=== PATIENT | female | born 1940 | race Caucasian/White ===

== ENCOUNTER 2021-07-27 14:53 | Observation (INO) ==
[2021-07-27] MEDS ORDERED: 0.9 % Sodium Chloride 1,000 ML IVC ONE (20:23)
[2021-07-27] MEDS ORDERED: Ketorolac 30 MG/ML VIAL IVP ONE (20:23)
[2021-07-27 20:32] LABS: Basophils % 0.4 %; Eosinophils % 0.1 %; Hematocrit 43.8 % (35.3-44.9); Hemoglobin 14.3 g/dL (11.5-15.4); Immature Granulocytes % 0.3 % (0-4); Lymphocytes # 0.7 K/mcL (0.6-4.6); Lymphocytes % 7.8 %; Mean Corpuscular HGB Conc 32.6 g/dL (31.6-35.5); Mean Corpuscular Hemoglobin 26.6 pg (28.0-33.3); Mean Corpuscular Volume 81.6 fL (83.0-100.0); Mean Platelet Volume 9.5 fL (9.4-12.4); Monocytes # 0.9 K/mcL (0.0-1.3); Monocytes % 9.4 %; Neutrophils # 7.4 K/mcL (1.6-8.9); Platelet Count 159 K/mcL (140-400); Red Blood Count 5.37 M/mcL (3.82-4.97); Red Cell Distribution Width 14.1 % (11.5-14.5); White Blood Count 9.1 K/mcL (4.3-11.1)
[2021-07-27 20:54] LABS: Alanine Aminotransferase 18 Units/L (7-52); Albumin 4.5 g/dL (3.5-5.7); Albumin/Globulin Ratio 1.5 (1.1-2.2); Alkaline Phosphatase 69 Units/L (34-104); Aspartate Amino Transferase 14 Units/L (13-39); BUN/Creatinine Ratio 12 (6-26); Bilirubin,Direct 0.2 mg/dL (0.0-0.2); Bilirubin,Indirect 1.2 mg/dL (0.0-1.0); Bilirubin,Total 1.4 mg/dL (0.3-1.0); Blood Urea Nitrogen 15 mg/dL (8-23); Calcium 9.4 mg/dL (8.6-10.3); Carbon Dioxide 26 mEq/L (23-29); Chloride 99 mEq/L (98-107); Globulin 3.1 g/dL (2.4-3.5); Glucose 190 mg/dL (70-105); Lipase 22 Units/L (11-82); Osmolality,Calculated 286 (280-300); Potassium 4.4 mEq/L (3.5-5.1); Sodium 135 mEq/L (136-145); Total Protein 7.6 g/dL (6.4-8.9); eGFR For African Americans 49 (> 60); eGFR For Non-African Americans 40 (> 60)
[2021-07-27 20:55] LABS: Troponin I < 0.03 ng/mL (< 0.04)
[2021-07-27 21:25] LABS: Bilirubin,Urine Negative (Negative); Blood,Urine Large (Negative); Clarity,Urine Clear (Clear); Color,Urine Yellow (Yellow); Glucose,Urine (UA) 200 mg/dL (Normal); Ketones,Urine Negative (Negative); Leukocyte Esterase,Urine Negative (Negative); Mucus,Urine Few per lpf (None-Few); Nitrite,Urine Negative (Negative); PH,Urine 5.5 pH Units (5.0-8.0); Protein,Urine 70 mg/dL (Neg-Trace); RBC,Urine TNTC per hpf (0-3); Specific Gravity,Urine 1.025 (1.010-1.025); Squamous Epithelial Cell,Urine Few per hpf (None-Few); Urobilinogen,Urine Normal (Normal)
[2021-07-27] MEDS ORDERED: Ondansetron 4 MG/2 ML VIAL IVP PRN (23:18)
[2021-07-27] MEDS ORDERED: Naloxone 0.4 MG/ML INJ IVP PRN (23:18)
[2021-07-27] MEDS ORDERED: Acetaminophen 325 MG TABLET PO PRN (23:18)
[2021-07-27] MEDS ORDERED: *HR* OxyCODONE Immed Rel 5 MG TABLET PO PRN (23:21)
[2021-07-27] MEDS ORDERED: 0.9 % Sodium Chloride 1,000 ML IVC SCH (23:30)
[2021-07-27] MEDS ORDERED: *HR* Dextrose 50 % in Water (Syg) 50 ML SYRINGE IVP PRN (23:36)
[2021-07-27] MEDS ORDERED: D5% in Water 1,000 ML IVC PRN (23:36)
[2021-07-27] MEDS ORDERED: Dextrose Gel 15 GM/37.5 ML TUBE PO PRN ×2 (23:36)
[2021-07-27] MEDS ORDERED: Insulin LISPRO 300 UNITS/3 ML VIAL SUBQ SCH (23:45)
[2021-07-28] MEDS: Insulin LISPRO 300 UNITS/3 ML VIAL SUBQ SCH ×2 (00:52→07:59)
[2021-07-28 05:42] LABS: Basophils % 0.4 %; Eosinophils # 0.1 K/mcL (0.0-0.6); Eosinophils % 0.9 %; Hematocrit 35.7 % (35.3-44.9); Immature Granulocytes % 0.4 % (0-4); Lymphocytes # 0.9 K/mcL (0.6-4.6); Lymphocytes % 15.8 %; Mean Corpuscular HGB Conc 32.2 g/dL (31.6-35.5); Mean Corpuscular Hemoglobin 26.5 pg (28.0-33.3); Mean Corpuscular Volume 82.3 fL (83.0-100.0); Mean Platelet Volume 9.9 fL (9.4-12.4); Monocytes # 0.7 K/mcL (0.0-1.3); Monocytes % 11.4 %; Neutrophils # 4.1 K/mcL (1.6-8.9); Platelet Count 104 K/mcL (140-400); Red Blood Count 4.34 M/mcL (3.82-4.97); Segmented Neutrophils % 71.1 %; White Blood Count 5.7 K/mcL (4.3-11.1)
[2021-07-28 05:49] LABS: Hemoglobin 11.5 g/dL (11.5-15.4)
[2021-07-28 05:54] LABS: Prothrombin Time 11.5 Seconds (9.4-12.1)
[2021-07-28 05:55] LABS: Calcium 8.3 mg/dL (8.6-10.3); Magnesium 1.8 mg/dL (1.6-2.6); Potassium 3.8 mEq/L (3.5-5.1)
[2021-07-28] MEDS ORDERED: *HR* FentaNYL (PF) 100 MCG/2 ML VIAL ONE (07:08)
[2021-07-28] MEDS ORDERED: *HR* Propofol 200 MG/20 ML VIAL IVP ONE (07:08)
[2021-07-28] MEDS ORDERED: Ondansetron 4 MG/2 ML VIAL ONE (07:09)
[2021-07-28] MEDS ORDERED: Lidocaine -MPF 2% 5 ML VIAL ONE (07:09)
[2021-07-28] MEDS ORDERED: CeFAZolin Syr 2,000MG/20 ML 2,000 MG/20 ML SYRINGE IVPB ONE (07:54)
[2021-07-28] MEDS ORDERED: Dextrose Gel 15 GM/37.5 ML TUBE PO PRN ×2 (08:45)
[2021-07-28] MEDS ORDERED: 0.9 % Sodium Chloride 1,000 ML IVC SCH (08:45)
[2021-07-28] MEDS ORDERED: *HR* Dextrose 50 % in Water (Syg) 50 ML SYRINGE IVP PRN (08:45)
[2021-07-28] MEDS ORDERED: *HR* OxyCODONE Immed Rel 5 MG TABLET PO PRN (08:45)
[2021-07-28] MEDS ORDERED: D5% in Water 1,000 ML IVC PRN (08:45)
[2021-07-28] MEDS ORDERED: Naloxone 0.4 MG/ML INJ IVP PRN (08:45)
[2021-07-28] MEDS ORDERED: Ondansetron 4 MG/2 ML VIAL IVP PRN (08:45)
[2021-07-28] MEDS ORDERED: lisinopriL 10 MG TABLET PO SCH (09:00)
[2021-07-28 10:17] LABS: Estimated Average Glucose 183 mg/dl
[2021-07-28 10:51] VITALS: BP 163/78; PULSE 73; TEMP 97.5; O2SAT 95
[2021-07-28] MEDS ORDERED: Insulin LISPRO 300 UNITS/3 ML VIAL SUBQ SCH ×2 (11:30→21:00)
== END 2021-07-28 12:35 | disposition home or self-care (01) ==
LOC: EMEROOARM 14:53 → 3ANU 14:53
PROVIDERS: ADMIT Internal Medicine; ATTEND Internal Medicine